=== PATIENT | male | born 1985 | race Two or more races ===

== ENCOUNTER 2024-05-26 02:18 | Emergency (ER) | payer OTHER ==
[~2024-05-26] VITALS: Ht 175.3 cm; Wt 56.7 kg
[2024-05-26] MEDS ORDERED: CEFAZOLIN SODIUM 1,000 MG VIAL IM STA (05:10)
[2024-05-26] MEDS ORDERED: TETANUS & DIPHTHERIA TOX,ADULT 0.5 ML VIAL IM STA (05:10)
== END 2024-05-26 06:26 | disposition home or self-care (01) ==
LOC: ER 02:21
DX: S01.521A Laceration with foreign body of lip, initial encounter (principal); Y08.89XA Assault by other specified means, initial encounter; Y93.89 Activity, other specified; Y92.89 Other specified places as the place of occurrence of the external cause